=== PATIENT | male | born 1940 | race Caucasian/White ===

== ENCOUNTER 2018-06-08 14:34 | Emergency (ER) | payer MEDICARE, OTHER ==
[2018-06-08] MEDS ORDERED: GLUCAGON 5 MG in DEXTROSE 5% 45 ML IV STA (14:55)
[2018-06-08] MEDS ORDERED: CALCIUM CHLORIDE ABBOJECT 1000MG/10 ML SYRINGE IVP STA (14:55)
[2018-06-08] MEDS ORDERED: GLUCAGON 1 MG/ML VIAL ONE (14:58)
[2018-06-08] MEDS ORDERED: WATER FOR INJECTION,STERILE 10 ML ONE (15:09)
[2018-06-08 15:19] LABS: BASOPHILS # (AUTO) 0.1 10^3/uL (0.0-0.1); BASOPHILS % (AUTO) 1.1 %; EOSINOPHILS # (AUTO) 0.2 10^3/uL (0.0-0.7); EOSINOPHILS % (AUTO) 2.3 %; HGB - HEMOGLOBIN 14.9 g/dL (14.0-18.0); LYMPHOCYTES % (AUTO) 22.5 %; MEAN CORPUSCULAR HEMOGLOBIN 31.3 pg (27.0-31.0); MEAN CORPUSCULAR HGB CONC 33.6 g/dL (32.0-36.0); MEAN CORPUSCULAR VOLUME 93.4 fL (80.0-94.0); MEAN PLATELET VOLUME 8.2 fL (7.4-11.4); MONOCYTES # (AUTO) 0.8 10^3/uL (0.0-1.0); MONOCYTES % (AUTO) 8.9 %; NEUTROPHILS # (AUTO) 5.8 10^3/uL (1.5-6.6); NEUTROPHILS % (AUTO) 65.2 %; PLT - PLATELET COUNT 202 10^3/uL (130-450); RED BLOOD COUNT 4.74 10^6/uL (4.70-6.10); RED CELL DISTRIBUTION WIDTH 13.8 % (12.0-15.0); WHITE BLOOD COUNT 8.9 x10^3/uL (4.8-10.8)
[2018-06-08 15:31] LABS: ALBUMIN 3.9 g/dL (3.2-5.5); ALBUMIN/GLOBULIN RATIO 1.3 (1.0-2.2); BILIRUBIN,TOTAL 0.8 mg/dL (0.2-1.0); CALCIUM 9.1 mg/dL (8.5-10.3); CREATININE 1.4 mg/dL (0.6-1.2); MAGNESIUM 2.2 mg/dL (1.7-2.8); PHOSPHORUS 2.9 mg/dL (2.5-4.6); TOTAL PROTEIN 6.8 g/dL (6.7-8.2)
--- NOTE | 2018-06-08 15:34 | XRAY Report ---
Procedure Date: 06/08/2018 Accession Number: [id number] / [id number] Procedure: XR - Chest 1 View X-Ray CPT Code: 52085 FULL RESULT: EXAM: CHEST RADIOGRAPHY EXAM DATE: 06/08/2018 03:01 PM. CLINICAL HISTORY: Bradycardia. COMPARISON: None. TECHNIQUE: 1 view. FINDINGS: Lungs/Pleura: No focal opacities evident. No pleural effusion. No pneumothorax. Mediastinum: Within exam limitations, the cardiomediastinal contour is normal. Other: None. IMPRESSION: No acute cardiopulmonary abnormality demonstrated. RADIA
--- NOTE | 2018-06-08 15:38 | ED Physician Documentation ---
History of Present Illness - Stated complaint Stated Complaint: SOA/DIZZY/BILAT ARM NUMBNESS - Chief complaint Chief Complaint: Cardiac - History obtained from History obtained from: Patient, Family - History of Present Illness Timing: Today Pain level max: 0 Pain level now: 0 Improved by: rest Worsened by: standing - Additonal information Additional information: Patient is a 78-year-old male who presents to the emergency department feeling lightheaded, dizzy and short of air. He states that this started today. Takes metoprolol and diltiazem at home. Unknown doses. He lives in [place]. No chest pain. No palpitations. Found to have a decreased heart rate in triage. Heart rate approximately 25-30. no syncope Review of Systems Ten Systems: 10 systems reviewed and negative Constitutional: denies: Fever, Chills Ears: denies: Ear pain Nose: denies: Rhinorrhea / runny nose, Congestion Cardiac: denies: Chest pain / pressure, Palpitations Respiratory: denies: Cough, Wheezing GI: denies: Abdominal Pain, Nausea, Vomiting, Diarrhea Skin: denies: Rash Musculoskeletal: denies: Neck pain, Back pain Neurologic: denies: Headache PD PAST MEDICAL HISTORY - Past Medical History Past Medical History: Yes Cardiovascular: High cholesterol - Past Surgical History Past Surgical History: Yes HEENT: Tonsil/Adenoidectomy - Present Medications Home Medications: Ambulatory Orders Medication Instructions Recorded Confirmed Atenolol 25 mg PO 06/08/18 Statin 06/08/18 Triamterene [Dyrenium] 50 mg PO 06/08/18 06/08/18 diltiaZEM CD [Cardizem Cd] 240 mg PO DAILY 06/08/18 06/08/18 - Allergies Allergies/Adverse Reactions: Allergies Allergy/AdvReac Type Severity Reaction Status Date / Time No Known Drug Allergies Allergy Verified 06/08/18 15:05 - Social History Does the pt smoke?: No Smoking Status: Former smoker Does the pt drink ETOH?: Yes Does the pt have substance abuse?: No - Immunizations Immunizations are current?: Yes PD ED PE NORMAL - Vitals Vital signs reviewed: Yes - General General: Alert and oriented X 3, No acute distress - HEENT HEENT: Moist mucous membranes - Neck Neck: Supple, no meningeal sign - Cardiac Cardiac: RRR, Strong equal pulses - Respiratory Respiratory: No respiratory distress, Clear bilaterally - Abdomen Abdomen: Soft, Non tender, Non distended - Derm Derm: Warm and dry - Extremities Extremities: No edema - Neuro Neuro: Alert and oriented X 3 - Psych Psych: Normal mood, Normal affect Results - Vitals Vitals: Vital Signs - 24 hr 06/08/18 06/08/18 06/08/18 14:35 15:03 15:30 Temperature 36.7 C 36.5 C Heart Rate 30 L 30 L 35 L Respiratory 18 18 12 Rate Blood Pressure 141/21 H 154/97 H 140/63 H O2 Saturation 99 98 98 06/08/18 06/08/18 06/08/18 16:10 16:35 17:30 Temperature Heart Rate 35 L 37 L 32 L Respiratory 13 15 14 Rate Blood Pressure 133/60 H 139/65 H 133/58 H O2 Saturation 98 98 98 06/08/18 06/08/18 18:00 18:38 Temperature 36.6 C Heart Rate 33 L 39 L Respiratory 16 18 Rate Blood Pressure 110/57 L 127/62 O2 Saturation 96 96 Oxygen O2 Source Room air - EKG (time done) 1510 Other comments: Other comments (rhythm strip -sinus raad) 1441 Rate: Rate (enter#) (32) Rhythm: Sinus bradycardia [place]: Normal Intervals: 1st degree AVB QRS: Normal Ischemia: Normal ST segments Computer interpretation: Agree with computer - Labs Labs: Laboratory Tests 06/08/18 06/08/18 06/08/18 15:10 15:10 15:10 WBC 8.9 RBC 4.74 Hgb 14.9 Hct 44.3 MCV 93.4 MCH 31.3 H MCHC 33.6 RDW 13.8 Plt Count 202 MPV 8.2 Neut # (Auto) 5.8 Lymph # (Auto) 2.0 [place] # (Auto) 0.8 Eos # (Auto) 0.2 Baso # (Auto) 0.1 Absolute Nucleated RBC 0.00 Nucleated RBC % 0.0 Sodium 140 Potassium 5.0 Chloride 108 Carbon Dioxide 25 Anion Gap 7.0 BUN 27 H Creatinine 1.4 H Estimated GFR (MDRD) 49 L Glucose 102 H Calcium 9.1 Phosphorus 2.9 Magnesium 2.2 Total Bilirubin 0.8 AST 92 H ALT 94 H Alkaline Phosphatase 75 Troponin I < 0.04 Total Protein 6.8 Albumin 3.9 Globulin 2.9 Albumin/Globulin Ratio 1.3 Lipase 26 - Rads (name of study) cxr Radiology: Prelim report reviewed, EMP read contemporaneously, See rad report ( no acute abnormality) PD MEDICAL DECISION MAKING - ED course Complexity details: reviewed results, re-evaluated patient, considered differential, d/w patient, d/w child development consultant ED course: Patient is a 78-year-old male with symptomatic bradycardia. Appears to be sinus bradycardia. No block other than a first-degree AV block is apparent. Likely secondary to his Cardizem and metoprolol. Given glucagon and calcium, heart rate did improve from the mid 20s to the mid 30s. He did have a few sinus pauses as well. External pacer pads were placed on the patient, but were not turned on. Also given half a milligram of atropine. Discussed the case with Dr. Orin Hoffmann, at 1620 who graciously accepts in transfer. - Sepsis Event Vital Signs: Vital Signs - 24 hr 06/08/18 06/08/18 06/08/18 14:35 15:03 15:30 Temperature 36.7 C 36.5 C Heart Rate 30 L 30 L 35 L Respiratory 18 18 12 Rate Blood Pressure 141/21 H 154/97 H 140/63 H O2 Saturation 99 98 98 06/08/18 06/08/18 06/08/18 16:10 16:35 17:30 Temperature Heart Rate 35 L 37 L 32 L Respiratory 13 15 14 Rate Blood Pressure 133/60 H 139/65 H 133/58 H O2 Saturation 98 98 98 06/08/18 06/08/18 18:00 18:38 Temperature 36.6 C Heart Rate 33 L 39 L Respiratory 16 18 Rate Blood Pressure 110/57 L 127/62 O2 Saturation 96 96 Oxygen O2 Source Room air Departure - Departure Disposition: 02 Transfer Acute Care Hosp Clinical Impression: Sinus bradycardia Condition: Stable Discharge Date/Time: 06/08/18 18:57
[2018-06-08] MEDS ORDERED: ATROPINE ABBOJECT 0.5 MG/5 ML SYRINGE IVP STA (16:13)
[2018-06-08 18:39] VITALS: BP 127/62
== END 2018-06-08 18:57 | disposition short-term general hospital (02) ==
LOC: ED 14:34
DX: R00.1 Bradycardia, unspecified (principal); E78.00 Pure hypercholesterolemia, unspecified; Z87.891 Personal history of nicotine dependence
CPT/HCPCS: 36415; 71045; 80053; 83690; 83735; 84100; 84484; 85025; 92953; 93005; 96365; 96375; 99284; 99285

== ENCOUNTER 2018-06-08 18:55 | Outpatient (CLI) | payer MEDICARE, OTHER | END 2018-06-08 18:56 | disposition short-term general hospital (02) | LOC: EMS 18:55 | PROVIDERS: ATTEND Surgery | DX: R00.1 Bradycardia, unspecified (principal) | CPT/HCPCS: A0425; A0426 ==

== ENCOUNTER 2019-05-13 11:35 | Outpatient (CLI) | payer MEDICARE, OTHER ==
[2019-05-13 17:35] LABS: ALBUMIN/GLOBULIN RATIO 1.2 (1.0-2.2); ALKALINE PHOSPHATASE 83 IU/L (42-121); ALT ALANINE AMINOTRANSFERASE 34 IU/L (10-60); AST ASPARTATE AMINOTRANSFERASE 21 IU/L (10-42); BILIRUBIN,TOTAL 0.6 mg/dL (0.2-1.0); BUN - BLOOD UREA NITROGEN 31 mg/dL (6-20); CALCIUM 9.6 mg/dL (8.5-10.3); CARBON DIOXIDE - CO2 25 mmol/L (21-32); CHLORIDE 106 mmol/L (101-111); CHOL/HDL RATIO 4.6 (<5.0); CHOLESTEROL 208 mg/dL; CREATININE 1.1 mg/dL (0.6-1.2); GFR - MDRD 64 (>89); GLUCOSE 101 mg/dL (70-100); HDL CHOLESTEROL 45 mg/dL; LDL CHOLESTEROL,CALCULATED 136 mg/dL; SODIUM 142 mmol/L (135-145); TOTAL PROTEIN 7.3 g/dL (6.7-8.2); VLDL CHOLESTEROL 27 mg/dL
== END 2019-05-13 11:36 | disposition home or self-care (01) ==
LOC: LAB.S 11:35
PROVIDERS: ATTEND Internal Medicine
DX: E78.00 Pure hypercholesterolemia, unspecified (principal)
CPT/HCPCS: 36415; 80053; 80061; 83721

== ENCOUNTER 2020-07-25 19:09 | Emergency (ER) | payer MEDICARE, OTHER ==
[2020-07-25] MEDS ORDERED: NITROGLYCERIN SL 0.4 MG TABLET SL STA (19:29)
[2020-07-25 19:32] LABS: BASOPHILS # (AUTO) 0.1 10^3/uL (0.0-0.1); BASOPHILS % (AUTO) 0.6 %; EOSINOPHILS # (AUTO) 0.2 10^3/uL (0.0-0.7); EOSINOPHILS % (AUTO) 1.7 %; LYMPHOCYTES # (AUTO) 2.2 10^3/uL (1.5-3.5); LYMPHOCYTES % (AUTO) 17.2 %; MEAN CORPUSCULAR HEMOGLOBIN 30.5 pg (27.0-31.0); MEAN CORPUSCULAR HGB CONC 32.7 g/dL (32.0-36.0); MEAN CORPUSCULAR VOLUME 93.3 fL (80.0-94.0); MONOCYTES # (AUTO) 0.8 10^3/uL (0.0-1.0); MONOCYTES % (AUTO) 6.7 %; NEUTROPHILS # (AUTO) 9.2 10^3/uL (1.5-6.6); NEUTROPHILS % (AUTO) 73.2 %; PLT - PLATELET COUNT 226 10^3/uL (130-450); RED BLOOD COUNT 5.25 10^6/uL (4.70-6.10); RED CELL DISTRIBUTION WIDTH 12.8 % (12.0-15.0); WHITE BLOOD COUNT 12.6 x10^3/uL (4.8-10.8)
--- NOTE | 2020-07-25 19:32 | ED Physician Documentation ---
PD HPI CHEST PAIN - Stated complaint Stated Complaint: CHEST DISCOMFORT - Chief complaint Chief Complaint: Cardiac - History obtained from History obtained from: Patient - Additional information Additional information: This is an 80-year-old gentleman with no known history of coronary disease. 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 Did not end up needing a pacemaker, medication adjustments were sufficient. About 5:00 tonight he developed typical rest pain that he is never had before. Substernal chest pressure radiating to either side but not the back. He feels ill with it but not specifically nauseous dizzy or short of breath. He is never had this before. 6 baby aspirin just prior to arrival. Review of Systems Ten Systems: 10 systems reviewed and negative Constitutional: denies: Fever, Chills, Sweats Nose: reports: Reviewed and negative Throat: reports: Reviewed and negative PD PAST MEDICAL HISTORY - Past Medical History Cardiovascular: High cholesterol - Past Surgical History Past Surgical History: Yes HEENT: Tonsil/Adenoidectomy - Present Medications Home Medications: Ambulatory Orders Medication Instructions Recorded Confirmed Statin 06/08/18 Triamterene [Dyrenium] 50 mg PO 06/08/18 06/08/18 atenoloL [Atenolol] 25 mg PO 06/08/18 diltiaZEM CD [Cardizem Cd] 240 mg PO DAILY 06/08/18 06/08/18 - Allergies Allergies/Adverse Reactions: Allergies Allergy/AdvReac Type Severity Reaction Status Date / Time No Known Drug Allergies Allergy Verified 07/25/20 19:25 - Social History Does the pt smoke?: No Smoking Status: Former smoker Does the pt drink ETOH?: Yes Does the pt have substance abuse?: No - Immunizations Immunizations are current?: Yes PD ED PE NORMAL - Vitals Vital signs reviewed: Yes - General General: Alert and oriented X 3, Other (Slightly uncomfortable but not overtly ill) - HEENT HEENT: PERRL, EOMI - Neck Neck: Supple, no meningeal sign, No bony TTP - Cardiac Cardiac: RRR, No murmur - Respiratory Respiratory: No respiratory distress, Clear bilaterally - Abdomen Abdomen: Normal bowel sounds, Soft, Non tender - Back Back: No CVA TTP, No spinal TTP - Derm Derm: Normal color, Warm and dry - Extremities Extremities: No edema, No calf tenderness / cord - Neuro Neuro: Alert and oriented X 3, Normal speech Results - Vitals Vitals: Vital Signs - 24 hr 07/25/20 07/25/20 07/25/20 19:10 20:00 20:03 Temperature 36.9 C Heart Rate 86 Respiratory 18 Rate Blood Pressure 173/92 H 74/55 L 70/40 L O2 Saturation 95 07/25/20 07/25/20 07/25/20 20:05 20:14 20:19 Temperature Heart Rate 72 78 Respiratory 13 14 Rate Blood Pressure 74/44 L 103/58 L 134/64 H O2 Saturation 94 92 07/25/20 07/25/20 07/25/20 20:46 20:51 21:30 Temperature Heart Rate 71 71 66 Respiratory 15 17 11 L Rate Blood Pressure 156/73 H 142/72 H 158/74 H O2 Saturation 96 97 98 Oxygen O2 Source Room air - EKG (time done) 1918 Rate: Rate (enter#) (82) Rhythm: NSR [place]: Normal Intervals: Prolonged [place], RBBB Ischemia: Other (He has deep anterior T wave inversion, compared to the last EKG in the chart dated 06/08/2018 the right bundle branch block and long [place] old. His bradycardia has resolved. T wave inversion is new. No ST elevation.) - Labs Labs: Laboratory Tests 07/25/20 07/25/20 07/25/20 19:25 19:25 19:25 WBC 12.6 H RBC 5.25 Hgb 16.0 Hct 49.0 MCV 93.3 MCH 30.5 MCHC 32.7 RDW 12.8 Plt Count 226 MPV 9.0 Neut # (Auto) 9.2 H Lymph # (Auto) 2.2 [place] # (Auto) 0.8 Eos # (Auto) 0.2 Baso # (Auto) 0.1 Absolute Nucleated RBC 0.00 Nucleated RBC % 0.0 Sodium 142 Potassium 4.0 Chloride 101 Carbon Dioxide 28 Anion Gap 13.0 BUN 26 H Creatinine 1.3 H Estimated GFR (MDRD) 53 L Glucose 115 H Calcium 10.7 H Total Bilirubin 0.5 AST 28 ALT 46 Alkaline Phosphatase 76 Troponin I High Sens 6.5 Total Protein 8.1 Albumin 4.2 Globulin 3.9 Albumin/Globulin Ratio 1.1 Lipase 27 07/25/20 20:45 WBC RBC Hgb Hct MCV MCH MCHC RDW Plt Count MPV Neut # (Auto) Lymph # (Auto) [place] # (Auto) Eos # (Auto) Baso # (Auto) Absolute Nucleated RBC Nucleated RBC % Sodium Potassium Chloride Carbon Dioxide Anion Gap BUN Creatinine Estimated GFR (MDRD) Glucose Calcium Total Bilirubin AST ALT Alkaline Phosphatase Troponin I High Sens 5.8 Total Protein Albumin Globulin Albumin/Globulin Ratio Lipase - Rads (name of study) CXR Radiology: EMP read contemporaneously (NAD) Ct Angio chest Radiology: EMP read contemporaneously (no PE or dissection) PD MEDICAL DECISION MAKING - ED course ED course: This is an 80-year-old gentleman with very concerning chest pain, his EKG shows some nonspecific changes compared to a few years ago. Nothing clearly ischemic. His initial troponin was negative. I had started a nitroglycerin drip, but he felt worse pain. His blood pressure dropped to about 70/40. Nitroglycerin was stopped. A fluid bolus was started. An EKG was repeated without interim significant change to my eye. After his pressure rebounded he felt back to the same level of pain which was mild as he had on arrival. Subsequent to that his pain remained very mild. Second troponin was done without significant delta change. His heart score is 5. I recommended an observation stay for formal rule out which he refused. He and his s/o understand that ACS is not completely ruled out, but refused to stay in the hospital. Departure - Departure Disposition: 01 Home, Self Care Clinical Impression: Chest pain Qualifiers: Chest pain type: unspecified Qualified Code(s): R07.9 - Chest pain, unspecified Condition: Good Record reviewed to determine appropriate education?: Yes Instructions: ED Chest Pain NonCardiac Comments: As discussed, I have recommended to stay in the hospital tonight. You have a heart score of 5 suggesting that your upcoming risk of coronary event is on the order of 15%. You have decided to go home and I think this is okay, but return anytime if worsening. I also recommend you follow-up with your lingo cleaner to discuss this episode.
[2020-07-25 19:52] LABS: ALBUMIN 4.2 g/dL (3.2-5.5); ALBUMIN/GLOBULIN RATIO 1.1 (1.0-2.2); BILIRUBIN,TOTAL 0.5 mg/dL (0.2-1.0); CALCIUM 10.7 mg/dL (8.5-10.3); CREATININE 1.3 mg/dL (0.6-1.2); TOTAL PROTEIN 8.1 g/dL (6.7-8.2)
[2020-07-25] MEDS ORDERED: NITROGLYCERIN 50 MG/250 ML 50 MG/250 ML BOTTLE IV SCH (20:00)
--- NOTE | 2020-07-25 20:00 | XRAY Report ---
PROCEDURE: Chest 1 View X-Ray INDICATIONS: Chest pain TECHNIQUE: One view of the chest was acquired. COMPARISON: 06/08/2018 FINDINGS: Surgical changes and devices: None. Lungs and pleura: Basilar airspace opacities are nonspecific, likely atelectatic although an infectio us process could cause a similar appearance. No pleural effusion or pneumothorax. Mediastinum: Mediastinal contours appear normal. Heart size is normal. Bones and chest wall: No suspicious bony lesions. Overlying soft tissues appear unremarkable. IMPRESSION: Basilar airspace opacities bilaterally which are nonspecific but could represent an infectious proces s. Follow-up to resolution recommended. Reviewed by: Gordon Santana MD on 07/25/2020 7:58 PM PDT Approved by: Gordon Santana MD on 07/25/2020 7:58 PM PDT Station ID: [id number]
[2020-07-25] MEDS ORDERED: SODIUM CHLORIDE 0.9% 500 ML IV STA (20:07)
[2020-07-25] MEDS ORDERED: MORPHINE 2 MG/ML CARPUJECT IVP STA (20:18)
[2020-07-25] MEDS ORDERED: IOVERSOL 320 100 ML VIAL IVP ONE ×2 (20:20→20:47)
--- NOTE | 2020-07-25 20:56 | CT Report ---
PROCEDURE: ANGIO CHEST W/WO INDICATIONS: Chest pain, ao protocol CONTRAST: IV CONTRAST: Optiray 320 ml: 80 PO CONTRAST: *NO PO CONTRAST TECHNIQUE: After the administration of intravenous contrast, 2 mm thick sections acquired from the pulmonary api monique to the posterior costophrenic angles. 3-dimensional maximum intensity projection (MIP) coronal a nd sagittal reformats were then acquired through the thorax. For radiation dose reduction, the follow ing was used: automated exposure control, adjustment of mA and/or kV according to patient size. COMPARISON: None FINDINGS: Image quality: Excellent. Pulmonary arteries: No pulmonary embolism. Lungs and pleura: Lungs are clear. No pleural effusions or pneumothorax. Central and peripheral ai rways are patent. Mediastinum: Atherosclerotic normal caliber abdominal aorta with no findings of a dissection or other acute aortic abnormality. Normal heart size without pericardial effusion. 4 vessel coronary atherosc lerosis. No mediastinal or hilar lymphadenopathy. Bones and chest wall: No suspicious bony lesions. Ribs and thoracic spine appear intact throughout. No axillary or supraclavicular lymphadenopathy. Abdomen: Visualized upper abdominal solid organs appear normal in the early arterial phase of enhanc ement. IMPRESSION: No acute aortic abnormality. No evidence of pulmonary embolus or other acute finding in the chest. Reviewed by: Gordon Santana MD on 07/25/2020 8:55 PM PDT Approved by: Gordon Santana MD on 07/25/2020 8:55 PM PDT Station ID: [id number]
[2020-07-25 22:11] VITALS: BP 146/79
== END 2020-07-25 22:10 | disposition home or self-care (01) ==
LOC: ED 19:09
DX: R07.9 Chest pain, unspecified (principal); I95.9 Hypotension, unspecified; Z87.891 Personal history of nicotine dependence
CPT/HCPCS: 36415; 71045; 71275; 80053; 83690; 84484; 85025; 93005; 96374; 99284; A9270; Q9967

== ENCOUNTER 2021-05-09 10:10 | Outpatient (CLI) | payer MEDICARE, OTHER ==
[2021-05-09 14:45] LABS: BASOPHILS # (AUTO) 0.1 10^3/uL (0.0-0.1); BASOPHILS % (AUTO) 0.8 %; EOSINOPHILS # (AUTO) 0.2 10^3/uL (0.0-0.7); EOSINOPHILS % (AUTO) 2.8 %; HGB - HEMOGLOBIN 14.5 g/dL (14.0-18.0); LYMPHOCYTES # (AUTO) 2.1 10^3/uL (1.5-3.5); LYMPHOCYTES % (AUTO) 29.3 %; MEAN CORPUSCULAR HGB CONC 31.5 g/dL (32.0-36.0); MEAN CORPUSCULAR VOLUME 95.2 fL (80.0-94.0); MEAN PLATELET VOLUME 11.1 fL (7.4-11.4); MONOCYTES # (AUTO) 0.6 10^3/uL (0.0-1.0); MONOCYTES % (AUTO) 8.6 %; NEUTROPHILS # (AUTO) 4.2 10^3/uL (1.5-6.6); NEUTROPHILS % (AUTO) 58.2 %; PLT - PLATELET COUNT 252 10^3/uL (130-450); RED BLOOD COUNT 4.83 10^6/uL (4.70-6.10); RED CELL DISTRIBUTION WIDTH 13.8 % (12.0-15.0); WHITE BLOOD COUNT 7.1 x10^3/uL (4.8-10.8)
[2021-05-09 15:02] LABS: ALBUMIN 4.2 g/dL (3.2-5.5); ALBUMIN/GLOBULIN RATIO 1.4 (1.0-2.2); ALKALINE PHOSPHATASE 63 IU/L (42-121); ALT ALANINE AMINOTRANSFERASE 35 IU/L (10-60); AST ASPARTATE AMINOTRANSFERASE 24 IU/L (10-42); BILIRUBIN,TOTAL 0.7 mg/dL (0.2-1.0); BUN - BLOOD UREA NITROGEN 30 mg/dL (6-20); CALCIUM 9.4 mg/dL (8.5-10.3); CARBON DIOXIDE - CO2 24 mmol/L (21-32); CHLORIDE 99 mmol/L (101-111); CHOL/HDL RATIO 2.8 (<5.0); CHOLESTEROL 161 mg/dL; CREATININE 1.4 mg/dL (0.6-1.2); GFR - MDRD 49 (>89); GLUCOSE 114 mg/dL (70-100); HDL CHOLESTEROL 57 mg/dL; LDL CHOLESTEROL,CALCULATED 85 mg/dL; LDL/HDL RATIO 1.5 (<3.6); POTASSIUM 4.4 mmol/L (3.5-5.0); SODIUM 137 mmol/L (135-145); TOTAL PROTEIN 7.3 g/dL (6.7-8.2); TRIGLYCERIDES 94 mg/dL; VLDL CHOLESTEROL 19 mg/dL
[2021-05-09 20:10] LABS: ESTIMATED AVERAGE GLUCOSE 128 mg/dL (70-100); HEMOGLOBIN A1c% 6.1 % (4.27-6.07)
== END 2021-05-09 10:11 | disposition home or self-care (01) ==
LOC: LAB.S 10:10
PROVIDERS: ATTEND Internal Medicine
DX: I10 Essential (primary) hypertension (principal); R73.9 Hyperglycemia, unspecified
CPT/HCPCS: 36415; 80053; 80061; 83036; 83721; 85025

== ENCOUNTER 2022-07-24 08:19 | Outpatient (CLI) | payer MEDICARE, OTHER ==
[2022-07-24 15:07] LABS: BASOPHILS % (AUTO) 0.5 %; EOSINOPHILS # (AUTO) 0.2 10^3/uL (0.0-0.7); EOSINOPHILS % (AUTO) 2.8 %; HCT - HEMATOCRIT 48.1 % (42.0-52.0); HGB - HEMOGLOBIN 15.6 g/dL (14.0-18.0); LYMPHOCYTES # (AUTO) 2.1 10^3/uL (1.5-3.5); LYMPHOCYTES % (AUTO) 26.2 %; MEAN CORPUSCULAR HEMOGLOBIN 30.4 pg (27.0-31.0); MEAN CORPUSCULAR HGB CONC 32.4 g/dL (32.0-36.0); MEAN CORPUSCULAR VOLUME 93.6 fL (80.0-94.0); MEAN PLATELET VOLUME 11.1 fL (7.4-11.4); MONOCYTES # (AUTO) 0.7 10^3/uL (0.0-1.0); NEUTROPHILS % (AUTO) 61.3 %; PLT - PLATELET COUNT 227 10^3/uL (130-450); RED BLOOD COUNT 5.14 10^6/uL (4.70-6.10); RED CELL DISTRIBUTION WIDTH 13.2 % (12.0-15.0); WHITE BLOOD COUNT 8.1 x10^3/uL (4.8-10.8)
[2022-07-24 15:38] LABS: THYROID STIMULATING HORMONE 2.6 uIU/mL (0.34-5.60)
[2022-07-24 15:46] LABS: ALBUMIN 4.3 g/dL (3.2-5.5); ALBUMIN/GLOBULIN RATIO 1.4 (1.0-2.2); ALKALINE PHOSPHATASE 64 IU/L (42-121); ALT ALANINE AMINOTRANSFERASE 44 IU/L (10-60); AST ASPARTATE AMINOTRANSFERASE 29 IU/L (10-42); BILIRUBIN,TOTAL 0.8 mg/dL (0.2-1.0); BUN - BLOOD UREA NITROGEN 32 mg/dL (6-20); CALCIUM 10.1 mg/dL (8.5-10.3); CARBON DIOXIDE - CO2 25 mmol/L (21-32); CHLORIDE 108 mmol/L (101-111); CHOL/HDL RATIO 3.6 (<5.0); CHOLESTEROL 160 mg/dL; CREATININE 1.6 mg/dL (0.6-1.2); GFR - MDRD 41 (>89); GLUCOSE 136 mg/dL (70-100); HDL CHOLESTEROL 44 mg/dL; LDL CHOLESTEROL,CALCULATED 87 mg/dL; POTASSIUM 4.3 mmol/L (3.5-5.0); SODIUM 143 mmol/L (135-145); TOTAL PROTEIN 7.4 g/dL (6.7-8.2); TRIGLYCERIDES 146 mg/dL; VLDL CHOLESTEROL 29 mg/dL
== END 2022-07-24 08:20 | disposition home or self-care (01) ==
LOC: LAB.S 08:19
PROVIDERS: ATTEND Registered Nurse
DX: Z00.00 Encounter for general adult medical examination without abnormal findings (principal); R73.9 Hyperglycemia, unspecified; E78.00 Pure hypercholesterolemia, unspecified; I10 Essential (primary) hypertension
CPT/HCPCS: 36415; 80053; 80061; 83721; 84153; 84443; 85025

== ENCOUNTER 2022-08-09 20:48 | Outpatient (CLI) | payer MEDICARE, OTHER | END 2022-08-09 20:49 | disposition short-term general hospital (02) | LOC: EMS 20:48 | DX: R07.9 Chest pain, unspecified (principal) | CPT/HCPCS: A0425; A0427 ==

== ENCOUNTER 2024-04-28 11:40 | Outpatient (CLI) | payer MEDICARE, OTHER ==
[2024-04-28 12:46] LABS: BASOPHILS # (AUTO) 0.1 10^3/uL (0.0-0.1); BASOPHILS % (AUTO) 1.1 %; EOSINOPHILS # (AUTO) 0.4 10^3/uL (0.0-0.7); EOSINOPHILS % (AUTO) 5.1 %; HCT - HEMATOCRIT 45.2 % (42.0-52.0); HGB - HEMOGLOBIN 13.9 g/dL (14.0-18.0); LYMPHOCYTES # (AUTO) 2.5 10^3/uL (1.5-3.5); LYMPHOCYTES % (AUTO) 34.3 %; MEAN CORPUSCULAR HGB CONC 30.8 g/dL (32.0-36.0); MEAN CORPUSCULAR VOLUME 94.2 fL (80.0-94.0); MEAN PLATELET VOLUME 9.9 fL (7.4-11.4); MONOCYTES # (AUTO) 0.8 10^3/uL (0.0-1.0); NEUTROPHILS # (AUTO) 3.5 10^3/uL (1.5-6.6); NEUTROPHILS % (AUTO) 48.1 %; PLT - PLATELET COUNT 209 10^3/uL (130-450); RED CELL DISTRIBUTION WIDTH 13.5 % (12.0-15.0); WHITE BLOOD COUNT 7.2 x10^3/uL (4.8-10.8)
[2024-04-28 12:55] LABS: ALBUMIN 4.1 g/dL (3.2-5.5); ALBUMIN/GLOBULIN RATIO 1.7 (1.0-2.2); ALKALINE PHOSPHATASE 55 IU/L (42-121); ALT ALANINE AMINOTRANSFERASE 17 IU/L (10-60); AST ASPARTATE AMINOTRANSFERASE 13 IU/L (10-42); BILIRUBIN,TOTAL 0.4 mg/dL (0.2-1.0); BUN - BLOOD UREA NITROGEN 31 mg/dL (6-20); CALCIUM 9.6 mg/dL (8.5-10.3); CARBON DIOXIDE - CO2 28 mmol/L (21-32); CHLORIDE 107 mmol/L (101-111); CHOL/HDL RATIO 2.8 (<5.0); CHOLESTEROL 138 mg/dL; CREATININE 1.5 mg/dL (0.6-1.3); GFR - MDRD 44 (>89); GLUCOSE 107 mg/dL (74-104); HDL CHOLESTEROL 50 mg/dL; LDL CHOLESTEROL,CALCULATED 62 mg/dL; LDL/HDL RATIO 1.2 (<3.6); POTASSIUM 4.1 mmol/L (3.5-4.5); SODIUM 140 mmol/L (135-145); TOTAL PROTEIN 6.5 g/dL (6.4-8.9); TRIGLYCERIDES 128 mg/dL (48-352); VLDL CHOLESTEROL 26 mg/dL
[2024-04-28 13:18] LABS: THYROID STIMULATING HORMONE 2.97 uIU/mL (0.34-5.60)
--- NOTE | 2024-04-28 17:30 | XRAY Report ---
PROCEDURE: Foot 1-2V BL INDICATIONS: RIGHT TOE PAIN TECHNIQUE: 3 weightbearing views of the foot were acquired. COMPARISON: None. FINDINGS: Bones: No fractures or dislocations. No suspicious bony lesions. Normal bony alignment on weightbe aring views. Moderate degenerative changes involving the dorsal midfoot bilaterally. Prominent bilate ral plantar calcaneal and retrocalcaneal enthesophytes. Mild-moderate degenerative changes of the rosa ateral first metatarsophalangeal joints more pronounced on the right. Soft tissues: No tibiotalar joint effusion. Achilles tendon appears normal. IMPRESSION: No acute bony abnormality. 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 Prominent bilateral plantar calcaneal and retrocalcaneal enthesophytes. Reviewed by: Jose Goss MD on 04/28/2024 5:29 PM PDT Approved by: Jose Goss MD on 04/28/2024 5:29 PM PDT Station ID: [id number]
== END 2024-04-28 11:41 | disposition home or self-care (01) ==
LOC: DI 11:40
PROVIDERS: ATTEND Registered Nurse
DX: M19.072 Primary osteoarthritis, left ankle and foot (principal); M19.071 Primary osteoarthritis, right ankle and foot; M77.32 Calcaneal spur, left foot; M77.31 Calcaneal spur, right foot; Z13.228 Encounter for screening for other metabolic disorders; Z13.220 Encounter for screening for lipoid disorders; Z13.29 Encounter for screening for other suspected endocrine disorder; Z13.0 Encounter for screening for diseases of the blood and blood-forming organs and certain disorders involving the immune mechanism
CPT/HCPCS: 36415; 80053; 80061; 83721; 84443; 85025